=== PATIENT | female | born 1980 | race Caucasian/White ===

== ENCOUNTER → 2017-07-24 | Outpatient (CLI) | payer BC ==
--- NOTE | 2017-07-24 11:43 | US ---
EXAM DESCRIPTION: Pelvic,Non-OB: Ultrasound. CLINICAL HISTORY: R/O APPENDICITIS OR RT TUBAL COMPARISON: Endovaginal pelvic ultrasound TECHNIQUE: Transcutaneous scanning: Two-dimensional mode. FINDINGS: Scanning of the right lower quadrant. Minimal tenderness. Heterogeneous echoes. No discrete solid mass or cyst. No fluid collection. Appendix was not seen. IMPRESSION: Tenderness while scanning the right lower quadrant. No free fluid. Appendix was not seen. Electronically signed by: Josiah Matias MD 07/24/2017 11:42 AM CDT
--- NOTE | 2017-07-24 12:15 | US ---
EXAM DESCRIPTION: Pelvis Transvaginal: Ultrasound CLINICAL HISTORY: R/O APPENDICITIS OR RT TUBAL . Serum beta-hCG 810.9 units. COMPARISON: Ultrasound scan of the right lower quadrant on the same visit. TECHNIQUE: Transcutaneous scanning through the urine filled bladder. Endovaginal scanning. Two-dimensional and Doppler modes. FINDINGS: The uterus measures 8.1 x 5.3 x 3.3 cm. Estimated volume. Endometrial thickness 6.2 mm. The myometrium appears heterogeneous. The uterus is not retroverted. Cervix contains a 1.4 cm cyst and an 8 mm cyst. Cul-de-sac contains three fluid. Right ovary measures 3.0 x 2.7 x 2.1 cm. Normal Vascularity Doppler. No follicles or cysts. Free fluid. Complex object with small subcentimeter cystic region. Increased vascularity. No pole. Left ovary measures 2.9 x 2.5 x 2.0 cm. Normal Vascularity Doppler. 1 cm follicle but no cysts. No adnexal mass or free fluid. IMPRESSION: 1. Somewhat irregular vascular object in the right adnexa with a small subcentimeter cystic portion. Free fluid abutting this object and the ovary. Cannot exclude ectopic . No decidual reaction in the uterine endometrium and no intrauterine gestational sac. Recommend follow-up serial serum beta-hCG measurements. 2. Fluid in the cul-de-sac. 1 cm follicle in the left ovary. CRITICAL COMMUNICATION: The critical value was discussed directly by phone with Ms. Audelia Alonzo, [employer] at approximately 1210 hours, on July 24, 2017. Electronically signed by: Josiah Matias MD 07/24/2017 12:14 PM [email or web address]
== END | disposition home or self-care (01) ==
LOC: GMA 10:17
PROVIDERS: ATTEND Physician Assistant
DX: R10.84 Generalized abdominal pain (principal)